=== PATIENT | male | born 2005 | race Caucasian/White ===

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

== ENCOUNTER 2024-07-07 22:21 | Emergency (ER) | payer OTHER ==
[~2024-07-07] VITALS: Ht 180.3 cm; Wt 67.1 kg
[~2024-07-07 22:21] MED LIST changes: +ACETAMINOPHEN500 MG PO; +FLUO10 PO
[2024-07-07] MEDS ORDERED: DiphenhydrAMINE HCl 50 MG/ML 1ML Vial IV ONE (23:00)
[2024-07-07] MEDS ORDERED: Lactated Ringer's 1,000 ML IV ONE (23:00)
[2024-07-07] MEDS ORDERED: Metoclopramide HCl 5MG / ML 2ML Vial IV ONE (23:00)
[2024-07-07 23:23] LABS: BASOPHILS ABSOLUTE AUTO 0.07 K/mm3 (0.00-0.23); BASOPHILS PERCENT AUTO 0 % (0-2); EOSINOPHILS ABSOLUTE AUTO 0.02 K/mm3 (0.00-0.68); EOSINOPHILS PERCENT AUTO 0 % (0-6); Hemoglobin 16.6 g/dL (13.5-17.5); IMMATURE GRAN ABSOLUTE AUTO 0.18 K/mm3 (0.00-0.10); IMMATURE GRAN PERCENT AUTO 1 % (0-1); LYMPHOCYTES ABSOLUTE AUTO 0.28 K/mm3 (0.84-5.20); LYMPHOCYTES PERCENT AUTO 1 % (21-46); MONOCYTES PERCENT AUTO 7 % (4-13); Mean Corpuscular HGB 31.8 pg (26.0-34.0); Mean Corpuscular HGB Conc 35.3 g/dL (31.5-36.5); Mean Corpuscular Volume 90 fL (80-100); NEUTROPHILS ABSOLUTE AUTO 24.02 K/mm3 (1.96-9.15); NEUTROPHILS PERCENT AUTO 91 % (41-73); Platelet Count 294 K/mm3 (150-400); RDW Coefficient Variation 11.7 % (11.7-14.2); RDW Standard Deviation 38.7 fL (35.1-46.3); Red Blood Cell Count 5.22 M/mm3 (4.30-5.90); White Blood Cell Count 26.47 K/mm3 (4.00-11.30)
[2024-07-07 23:40] LABS: Albumin, Blood 4.6 g/dL (3.4-5.0); Albumin/Globulin Ratio 1.1 (0.8-1.8); Bilirubin, Total 0.7 mg/dL (0.1-1.0); Calcium, Blood 9.6 mg/dL (8.5-10.1); Creatinine, Blood 1.28 mg/dL (0.60-1.20); Globulin, Blood 4.3 g/dL (2.2-4.0); Potassium, Blood 4.2 mmol/L (3.5-5.5); Total Protein, Blood 8.9 g/dL (6.4-8.2)
[2024-07-08 00:27] LABS: Influenza A, PCR NEGATIVE (NEGATIVE); Influenza B, PCR NEGATIVE (NEGATIVE); Resp Syncytial Virus, PCR NEGATIVE (NEGATIVE); SARS-Cov-2 (COVID-19) PCR, MMC NEGATIVE (NEGATIVE)
[2024-07-08] MEDS ORDERED: Lactated Ringer's 1,000 ML IV ONE (01:10)
[2024-07-08] MEDS ORDERED: ONDA4ODT MM (01:57)
[2024-07-08 02:00] VITALS: BP 116/78
== END 2024-07-08 02:18 | disposition home or self-care (01) ==
LOC: ER 22:21
PROVIDERS: Student in an Organized Health Care Education/Training Program
DX: K52.9 Noninfective gastroenteritis and colitis, unspecified (principal); Z88.0 Allergy status to penicillin; Z88.6 Allergy status to analgesic agent
CPT/HCPCS: 0241U; 71045; 80053; 83690; 85025; 96361; 96374; 96375; 99284-25; J1200; J2765; J7120